=== PATIENT | female | born 1965 | race Hispanic/Latino ===

== ENCOUNTER → 2024-04-03 | Outpatient (CLI) | payer BC ==
[~2024-04-03] MED LIST: GADOTERATE MEGLUMINE 10 MMOL/20 ML VIAL IV ONE
--- NOTE | 2024-04-03 14:17 | HMCIMG ---
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 ASSET with multiplanar 3-D reconstructions MR cholangiopancreatography sequences are also available for review. Contrast: MultiHance, 15 cc, IV FINDINGS: No evidence of nephro or ureterolithiasis is found. No hydronephrosis or ureteral dilatation is seen. The stomach is unremarkable. There is no evidence of gastric dilatation. No blastic thickening is noted to suggest inflammation or tumor. There is no perforation. There is no gastric outlet obstruction. There is no ulceration. The spleen is unremarkable. It is not enlarged. The pancreas shows normal anatomy. It is not fatty replaced. It shows no lesions. The pancreatic duct is not dilated. The gallbladder is surgically absent. The adrenal glands are unremarkable. There is no enlargement. No lesions are noted. The liver is unremarkable. It shows no focal masses. The visualized segments of large and small bowel appear unremarkable. The bony and vascular structures are unremarkable for the patient's age. IMPRESSION: NEGATIVE CT SCAN OF THE ABDOMEN. NO RENAL STONES. NO ACUTE PATHOLOGY OR INFLAMMATION SEEN.
--- NOTE | 2024-04-03 14:24 | HMCIMG ---
Exam Type: MRI of the pelvis with and without gadolinium Technique: Examination is done with multiecho multiplanar sequences, with and without fat saturation, before and after contrast administration. Findings: The examination is unremarkable. Specifically, the bony and cartilaginous structures of the pelvis are preserved. There is no significant effusion. No fractures or dislocations are identified. No bone lesions are seen. The visualized soft tissue structures of the pelvis are unremarkable as well. Visualized portions of the bladder appear unremarkable. Visualized pelvic viscera, muscular and subcutaneous compartments are preserved. Impression: Normal examination of the pelvis.
== END | disposition home or self-care (01) ==
LOC: RAH 11:19
PROVIDERS: ATTEND Family Medicine
DX: D48.7 Neoplasm of uncertain behavior of other specified sites (principal); D73.89 Other diseases of spleen
CPT/HCPCS: 74183; 72197; A9575

== ENCOUNTER → 2025-01-13 | Outpatient (CLI) | payer BC | END | disposition home or self-care (01) | LOC: RAH 13:57 | PROVIDERS: ATTEND Family Medicine | DX: Z12.31 Encounter for screening mammogram for malignant neoplasm of breast (principal) | CPT/HCPCS: 77067 ==